=== PATIENT | female | born 1985 | race American Indian/Alaskan Native ===

== ENCOUNTER 2017-10-02 11:56 | Emergency (ER) | payer OTHER ==
[2017-10-02 12:38] VITALS: BP 116/82
[2017-10-02] MEDS ORDERED: TORADOL IM ONE (13:29)
[2017-10-02] MEDS ORDERED: NORCO 5/325 PO ONE ×2 (13:30→15:35)
[2017-10-02] MEDS ORDERED: FLEXERIL PO ONE (13:31)
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
[2017-10-02] MEDS ORDERED: NORCO 5/325 ONE ×2 (14:35→15:37)
[2017-10-02] MEDS ORDERED: FLEXERIL ONE (14:35)
[2017-10-02] MEDS ORDERED: TORADOL ONE (14:35)
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
== END 2017-10-02 15:48 | disposition home or self-care (01) ==
LOC: ED 11:56
DX: S16.1XXA Strain of muscle, fascia and tendon at neck level, initial encounter (principal); G44.309 Post-traumatic headache, unspecified, not intractable; M19.90 Unspecified osteoarthritis, unspecified site; F17.200 Nicotine dependence, unspecified, uncomplicated; V89.2XXA Person injured in unspecified motor-vehicle accident, traffic, initial encounter; Y93.89 Activity, other specified; Y92.89 Other specified places as the place of occurrence of the external cause; Y99.8 Other external cause status
CPT/HCPCS: 70450; 72125; 96372; 99283; J1885

== ENCOUNTER 2018-10-18 08:52 | Emergency (ER) | payer OTHER, SELFPAY ==
[2018-10-18 08:58] VITALS: BP 123/84
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
== END 2018-10-18 09:42 | disposition home or self-care (01) ==
LOC: ED 08:52
DX: S46.912A Strain of unspecified muscle, fascia and tendon at shoulder and upper arm level, left arm, initial encounter (principal); M19.90 Unspecified osteoarthritis, unspecified site; F17.200 Nicotine dependence, unspecified, uncomplicated; Z98.51 Tubal ligation status; V89.2XXA Person injured in unspecified motor-vehicle accident, traffic, initial encounter; Y93.89 Activity, other specified; Y92.488 Other paved roadways as the place of occurrence of the external cause; Y99.8 Other external cause status
CPT/HCPCS: 99282